=== PATIENT | female | born 1975 | race Caucasian/White ===

== ENCOUNTER 2017-04-20 17:19 | Emergency (ER) | payer SELFPAY ==
--- NOTE | 2017-04-20 18:24 | Emergency Department Record ---
History of Present Illness - General Chief complaint: Abscess Stated complaint: LUMP LT SIDE NECK Time Seen by Provider: 04/20/17 18:18 Source: Patient, Family Mode of Arrival: Ambulatory Limitations: No limitations - History of Present Illness Initial comments: 41 yo female presents with a tender swollen area on the left neck. She noticed the area about 3 days ago. She initially had some drainage that has stopped. No fevers. No spreading redness. In the past she had a similar spot on her abdomen. MD complaint: Abscess/boil Onset/Timin -: Days(s) Location: Neck Severity: Mild Severity scale (1-10): 6 Quality: Aching, Burning Consistency: Constant Improves with: Other Worsens with: Movement Associated symptoms: Denies other symptoms Treatments Prior to Arrival: Attempted to drain pus at home - Related Data Previous Rx's Medication Instructions Recorded Clindamycin HCl 300 mg PO QID #28 capsule 04/20/17 Allergies Allergy/AdvReac Type Severity Reaction Status Date / Time No Known Drug Allergies Allergy Unverified 10/15/16 09:30 Travel Screening - Travel/Exposure Within Last 30 Days Have you traveled within the last 30 days?: No - Travel/Exposure Within Last Year Have you traveled outside the [place] in the last year?: No - Additonal Travel Details Have you been exposed to anyone with a communicable illness?: No - Travel Symptoms Symptom Screening: None Review of Systems Constitutional: Denies: Chills, Fever, Malaise, Weakness Eyes: Denies: Eye discharge ENT: Denies: Congestion, Throat pain Respiratory: Denies: Cough Cardiovascular: Denies: Chest pain, Palpitations, Syncope Endocrine: Denies: Fatigue Gastrointestinal: Denies: Abdominal pain, Diarrhea, Nausea, Vomiting Genitourinary: Denies: Dysuria, Urgency Musculoskeletal: Reports: As per HPI, Neck pain. Denies: Arthralgia, Back pain , Joint swelling, Myalgia Skin: Reports: As per HPI, Change in color, Lesions. Denies: Bruising Neurological: Denies: Headache Psychiatric: Denies: Anxiety Hematological/Lymphatic: Denies: Easy bleeding, Easy bruising, Swollen glands Past Medical History - SOCIAL HISTORY Smoking Status: Never smoker Alcohol Use: None Drug Use: None - RESPIRATORY Hx Respiratory Disorders: No - CARDIOVASCULAR Hx Cardio Disorders: Yes Hx Hypertension: Yes - NEURO Hx Neuro Disorders: No - GI Hx GI Disorders: No - Hx Genitourinary Disorders: No - ENDOCRINE Hx Endocrine Disorders: Yes Hx Thyroid Disease: Yes (hypo) - MUSCULOSKELETAL Hx Musculoskeletal Disorders: No - PSYCH Hx Psych Problems: No - HEMATOLOGY/ONCOLOGY Hx Hematology/Oncology Disorders: No Family Medical History Any Significant Family History?: No Hx Diabetes: Father Physical Exam - General General Appearance: Alert, Oriented x3, Cooperative, No acute distress Limitations: No limitations - Eye Eye exam: Normal appearance. negative: Conjunctival injection, Periorbital swelling - ENT ENT exam: Normal exam, Mucous membranes moist Ear exam: Normal external inspection Nasal Exam: Normal inspection Mouth exam: Normal external inspection Teeth exam: Normal inspection - Neck Neck exam: Full ROM, Other (2cm tender swollen soft tissue superficial area CW abscess). negative: Normal inspection, Lymphadenopathy, Meningismus, Tenderness - Respiratory Respiratory exam: Normal lung sounds bilaterally. negative: Respiratory distress - Cardiovascular Cardiovascular Exam: Regular rate, Normal rhythm, Normal heart sounds - Rectal Rectal exam: Deferred - exam: Deferred - Extremities Extremities exam: Normal inspection - Back Back exam: Reports: Normal inspection, Full ROM. Denies: Muscle spasm, Rash noted, Tenderness - Neurological Neurological exam: Alert, Normal gait, Oriented X3, Reflexes normal - Psychiatric Psychiatric exam: Normal affect, Normal mood - Skin Skin exam: Erythema Type of lesion: Abscess (left lateral neck) Course Vital Signs 04/20/17 18:14 Temperature 99.1 F Pulse Rate 65 Respiratory 16 Rate Blood Pressure 152/95 Pulse Ox 98 - Reevaluation(s) Reevaluation #1: I discussed the options with the patient and recommend I and D given she has had drainage already expressed and feels fluctuant at this time 04/20/17 18:25 Reevaluation #2: PROCEDURE I and d Betadine Prep Lidocaine with epi 1% with epi 2ml 11 Blade used to make a 4mm incision with immediate pus expressed The loculations were broken up and the cavity irrigated There was still some induration A 1/4 inch drain placed and dressing placed 04/20/17 18:43 Disposition Disposition: Discharge Clinical Impression: Soft tissue abscess Disposition: Home, Self-Care Condition: (1) Good Instructions: Abscess Incision and Drainage (ED), Abscess (ED) Additional Instructions: Leave the drain in for 2 days Return if you have fever, pain, spreading redness or any new concerns Take the antibiotics as directed for one week You have been referred to Dr Beal for a recheck of the neck mass if it persists. Prescriptions: Clindamycin HCl 300 mg PO QID #28 capsule Referrals: Dannie Beal [DOCTOR OF OSTEOPATH] - [facility] [Provider Group] Forms: Patient Portal Access Time of Disposition: 18:47
== END 2017-04-20 19:04 | disposition home or self-care (01) ==
LOC: ER 17:19
DX: L02.11 Cutaneous abscess of neck (principal)
CPT/HCPCS: 10061; 99284